=== PATIENT | male | born 1955 | race Caucasian/White ===

== ENCOUNTER 2019-10-15 15:12 | Emergency (ER) | payer SELFPAY ==
[~2019-10-15] VITALS: Ht 185.4 cm; Wt 109.3 kg
[2019-10-15] MEDS ORDERED: NORCO 5-325 TA1 EACH PO (16:58)
== END 2019-10-15 17:15 | disposition home or self-care (01) ==
LOC: ED 15:12
DX: S52.502A Unspecified fracture of the lower end of left radius, initial encounter for closed fracture (principal); W22.03XA Walked into furniture, initial encounter; Y93.89 Activity, other specified; Y92.89 Other specified places as the place of occurrence of the external cause; Y99.8 Other external cause status